=== PATIENT | male | born 1965 | race Caucasian/White ===

== ENCOUNTER → 2018-06-07 | Day surgery (SDC) | payer OTHER | END | disposition home or self-care (01) | LOC: JRADIR 10:44 | PROVIDERS: ATTEND Physician Assistant Surgical | PROC: BP08YZZ Plain Radiography of Right Shoulder using Other Contrast (ICD-10-PCS; principal; 2018-06-07) | PROC: BP38YZZ Magnetic Resonance Imaging (MRI) of Right Shoulder using Other Contrast (ICD-10-PCS; 2018-06-07) | DX: M25.511 Pain in right shoulder (principal) | CPT/HCPCS: 23350; 73040-TC-FY; 73222-TC ==

== ENCOUNTER 2021-03-15 03:56 | Emergency (ER) | payer OTHER ==
[2021-03-15 04:26] VITALS: BP 155/97; PULSE 89; TEMP 98.3; BMI 28.8
[2021-03-15] MEDS ORDERED: PANTOPRAZOLE 40 MG TABLET PO ONE (05:00)
[2021-03-15] MEDS ORDERED: FAMOTIDINE 20 MG/50 ML IVPB 20 MG/50 ML MG IVPB ONE ×2 (05:00→05:07)
[2021-03-15] MEDS ORDERED: ACETAMINOPHEN 325 MG TABLET (FP) PO PRN (05:01)
[2021-03-15] MEDS ORDERED: PANTOPRAZOLE 40 MG TABLET ONE (05:06)
[2021-03-15 05:56] LABS: BASO % 0.4 % (0-2.0); EOS % 1.9 % (0-4.5); HEMATOCRIT 41.9 % (35.4-49); HEMOGLOBIN 14.3 GM/dL (11.7-16.9); LYMPH % 20.4 % (8-40); MCH 28.7 pg (25.7-33.7); MCHC 34.2 g/dl (32.0-35.9); MEAN PLT VOLUME 7.8 fl (7.5-11.1); NEUT % 71.3 % (42.8-82.8); PLATELET COUNT 274 10^3/uL (134-434); RBC 4.98 M/mm3 (4.00-5.60); RDW 16.5 % (11.9-15.9); WHITE BLOOD COUNT 9.4 K/mm3 (4.0-10.0)
[2021-03-15 06:15] LABS: CHLORIDE 107 mmol/L (98-107); SODIUM 140 mmol/L (136-145)
[2021-03-15 06:17] LABS: CALCIUM 8.8 mg/dL (8.5-10.1)
[2021-03-15 06:18] LABS: ALBUMIN 3.8 g/dl (3.4-5.0); ANION GAP 8 MMOL/L (8-16); CO2 25 mmol/L (21-32); GLUCOSE,RANDOM 122 mg/dL (74-106); LIPASE 105 U/L (73-393)
[2021-03-15 06:20] LABS: CREATININE 0.7 mg/dL (0.55-1.3)
[2021-03-15 06:21] LABS: SGOT/AST 92 U/L (15-37); SGPT/ALT 64 U/L (13-61)
[2021-03-15 06:22] LABS: BILIRUBIN,TOTAL 0.9 mg/dL (0.2-1); TOT PROT 7.3 g/dl (6.4-8.2)
[2021-03-15 06:23] LABS: ALK PHOS 125 U/L (45-117)
[2021-03-15 06:30] LABS: BLOOD UREA NITROGEN 21.4 mg/dL (7-18)
== END 2021-03-15 05:38 | disposition left against medical advice (07) ==
LOC: JER 03:56
PROC: 3E033NZ Introduction of Analgesics, Hypnotics, Sedatives into Peripheral Vein, Percutaneous Approach (ICD-10-PCS; principal; 2021-03-15)
DX: R10.9 Unspecified abdominal pain (principal)
CPT/HCPCS: 36415; 80053; 83690; 84484; 85025; 93005; 93010; 96365; 99284-25

== ENCOUNTER 2022-08-29 15:31 | Emergency (ER) | payer OTHER ==
[2022-08-29 15:39] VITALS: BP 157/99; PULSE 107; RESP 18; TEMP 98.1; BMI 32.4
[2022-08-29] MEDS ORDERED: TETRACAINE 0.5% OPHTH SOLN 2 ML BOTTLE ONE (15:55)
[2022-08-29] MEDS ORDERED: FLUORESCEIN NA 1 EA STRIP ONE (15:55)
== END 2022-08-29 16:31 | disposition home or self-care (01) ==
LOC: JERFT 15:31
DX: H02.811 Retained foreign body in right upper eyelid (principal)
CPT/HCPCS: 99283-25

== ENCOUNTER 2024-01-27 07:33 | Emergency (ER) | payer OTHER ==
[2024-01-27 07:45] VITALS: BP 154/85; PULSE 85; RESP 18; TEMP 98.2; BMI 33.3
[2024-01-27] MEDS ORDERED: predniSONE 20 MG TABLET (UD) ONE (08:19)
[2024-01-27] MEDS: predniSONE 20 MG TABLET (UD) PO ONE (08:22)
== END 2024-01-27 08:33 | disposition home or self-care (01) ==
LOC: JER 07:33
DX: L23.7 Allergic contact dermatitis due to plants, except food (principal); L29.9 Pruritus, unspecified; R21 Rash and other nonspecific skin eruption
CPT/HCPCS: 99283-25